=== PATIENT | male | born 1985 | race Caucasian/White ===

== ENCOUNTER 2017-02-28 15:55 | Emergency (ER) | payer SELFPAY ==
[2017-02-28 15:59] VITALS: BP 128/96; BMI 21.9
--- NOTE | 2017-02-28 16:27 | DR.GENAD ---
HPI - PCP Primary Care Physician: NFD - Complaint/Symptoms Chief Complaint Doctors Comments: Patient complains of headache, chills, fever for four days. Chief Complaint:: PT. HAD 13 TOP TEETH PULLED A MONTH AGO IN [place], [place]. PT. STATES HE HAS HAD FEVER, CHILLS, SWEATS,. & INSOMNIA SINCE MONDAY. - Source History Provided: Patient, Significant Other - Mode of Arrival Mode of Arrival: Ambulatory - Timing Onset of Chief Complaint: 02/24/17 PMH - PMH Past Medical History: No Past Medical History: GERD Past Surgical History: Yes Surgical History: Other Past Surgical History Comment: ORAL - Family History History of Family Medical Conditions: Yes Family Medical History: [place] - Social History Does patient currently use any type of tobacco product: Yes Have you used tobacco products in the last 12 months: Yes Type of Tobacco Use: Cigarettes Does any household member use tobacco: Yes Alcohol Use: None Do you use any recreational Drugs:: No Lives With: Significant Other Lives Where: Home - infectious screening In the last 2 months have you had wt loss of >10#?: NO Have you had fever, night sweats or hemotysis?: No Have you traveled outside the country in the last 6 months?: No Isolation: Standard ROS - Review of Systems Constitutional: No Symptoms Reported Eyes: No Symptoms Reported ENTM: No Symptoms Reported Respiratoy: No Symptoms Reported Cardiovascular: No Symptoms Reported Gastrointestinal/Abdominal: No Symptoms Reported Genitourinary: No Symptoms Reported Neurological: No Symptoms Reported Musculoskeletal: No Symptoms Reported Integumentary: No Symptoms Reported PE - Vital Signs Vitals: Temperature 97.0 F Pulse Rate 97 Respiratory Rate 17 Blood Pressure 128/96 O2 Sat by Pulse Oximetry 100 ROR - Labs Reviewed Result Diagrams: 02/28/17 16:47 02/28/17 16:47 Laboratory: WBC 6.3 X10^3/uL (3.6-10.0) 02/28/17 16:47 RBC 5.47 X10^6/uL (4.7-6.0) 02/28/17 16:47 Hgb 16.8 g/dL (13.5-18.0) 02/28/17 16:47 Hct 50.0 % (42.0-54.0) 02/28/17 16:47 MCV 91.4 fL (80.0-100.0) 02/28/17 16:47 MCH 30.7 pg (27.0-34.0) 02/28/17 16:47 MCHC 33.6 g/dL (33.0-35.0) 02/28/17 16:47 RDW 12.8 % (11.6-16.5) 02/28/17 16:47 Plt Count 214 X10^3/uL (150.0-450.0) 02/28/17 16:47 MPV 8.0 fL (7.4-11.0) 02/28/17 16:47 Neut % 54.4 % (42.0-75.0) 02/28/17 16:47 Lymph % 33.8 % (21.0-51.0) 02/28/17 16:47 [place] % 9.9 % (0.0-13.0) 02/28/17 16:47 Eos % 1.2 % (0.9-2.9) 02/28/17 16:47 Baso % 0.7 % (0.2-1.0) 02/28/17 16:47 Neut # 3.4 x10^3/uL (2.2-4.8) 02/28/17 16:47 Lymph # 2.1 X10^3/uL (1.3-2.9) 02/28/17 16:47 [place] # 0.6 x10^3/uL (0.3-0.8) 02/28/17 16:47 Eos # 0.1 x10^3/uL (0.0-0.2) 02/28/17 16:47 Baso # 0.0 X10^3/uL (0.0-0.1) 02/28/17 16:47 Absolute Nucleated RBC 0.0 /100WBC 02/28/17 16:47 Sodium 141 mmol/L (136-145) 02/28/17 16:47 Corrected Sodium TNP 02/28/17 16:47 Potassium 4.5 mmol/L (3.5-5.1) 02/28/17 16:47 Chloride 104 mmol/L (98-107) 02/28/17 16:47 Carbon Dioxide 27.1 mmol/L (21-32) 02/28/17 16:47 BUN 10 mg/dL (7-18) 02/28/17 16:47 Creatinine 1.23 mg/dL (0.70-1.30) 02/28/17 16:47 Est GFR (MDRD) Af Amer > 60 (>60) 02/28/17 16:47 Est GFR (MDRD) Non-Af > 60 (>60) 02/28/17 16:47 Glucose 108 mg/dL (65-99) H 02/28/17 16:47 Calcium 9.4 mg/dL (8.5-10.1) 02/28/17 16:47 - Diagnosis Discharge Problem: R/O Influenza - Discharge Plan Condition: Stable - Follow ups/Referrals Follow ups/Referrals: NFD,None [Primary Care Provider] - 3 days - Instructions Instructions: Upper Respiratory Infection, Adult, [id number]
[2017-02-28 16:58] LABS: BASOPHILS % (AUTO) 0.7 % (0.2-1.0); EOSINOPHILS # (AUTO) 0.1 x10^3/uL (0.0-0.2); EOSINOPHILS % (AUTO) 1.2 % (0.9-2.9); HEMOGLOBIN 16.8 g/dL (13.5-18.0); LYMPHOCYTES # (AUTO) 2.1 X10^3/uL (1.3-2.9); LYMPHOCYTES % (AUTO) 33.8 % (21.0-51.0); MEAN CORPUSCULAR HEMOGLOBIN 30.7 pg (27.0-34.0); MEAN CORPUSCULAR HGB CONC 33.6 g/dL (33.0-35.0); MEAN CORPUSCULAR VOLUME 91.4 fL (80.0-100.0); MONOCYTES # (AUTO) 0.6 x10^3/uL (0.3-0.8); MONOCYTES % (AUTO) 9.9 % (0.0-13.0); NEUTROPHILS # (AUTO) 3.4 x10^3/uL (2.2-4.8); NEUTROPHILS % (AUTO) 54.4 % (42.0-75.0); PLATELET COUNT 214 X10^3/uL (150.0-450.0); RED BLOOD COUNT 5.47 X10^6/uL (4.7-6.0); RED CELL DISTRIBUTION WIDTH 12.8 % (11.6-16.5); WHITE BLOOD COUNT 6.3 X10^3/uL (3.6-10.0)
[2017-02-28 17:09] LABS: BLOOD UREA NITROGEN 10 mg/dL (7-18); CALCIUM 9.4 mg/dL (8.5-10.1); CARBON DIOXIDE 27.1 mmol/L (21-32); CHLORIDE 104 mmol/L (98-107); CREATININE 1.23 mg/dL (0.70-1.30); GLUCOSE 108 mg/dL (65-99); SODIUM 141 mmol/L (136-145); eGFR BLACK RACES > 60 (>60); eGFR NON BLACK RACES > 60 (>60)
== END 2017-02-28 17:51 | disposition home or self-care (01) ==
LOC: ER 16:08
DX: R51 Headache (principal); R68.83 Chills (without fever); R50.9 Fever, unspecified
CPT/HCPCS: 36415; 80048; 85025; 87502; 87503; 99282

== ENCOUNTER 2017-05-23 15:45 | Emergency (ER) | payer SELFPAY ==
[2017-05-23 15:55] VITALS: BP 139/95; BMI 21.9
--- NOTE | 2017-05-23 16:04 | DR.EXTPAIN ---
HPI - Time seen Time seen: 16:00 - PCP Primary Care Physician: NFD - Complaint/Symptoms Chief Complaint:: CUT ARM WITH GRINDING ROCK AT WORK Self Treatment fo Chief Complaint: EMS APPLIED PRESSURE TO SITE AND HAS BLEEDING CONTROLED. MORPHINE 4 MG IV GIVEN PER EMS - Nurses notes reviewed Nurses Notes Review: Yes - Source History Provided: Patient - Mode of arrival Mode of Arrival: EMS - Timing Onset of Chief Complaint: 05/23/17 - Context History of: None - Associated signs and symptoms Associated Signs and Symptoms: Laceration PMH - PMH Past Medical History: Yes Past Medical History: GERD Past Medical History Comment: KIDNEY STONES,CIATIC NERVE PAIN Past Surgical History: No Surgical History: Other - Family History History of Family Medical Conditions: Yes Family Medical History: [place] - Social History Does patient currently use any type of tobacco product: Yes Have you used tobacco products in the last 12 months: Yes Type of Tobacco Use: Cigarettes How many years tobacco product used: 15 Does any household member use tobacco: Yes Alcohol Use: None Do you use any recreational Drugs:: No Lives With: Family Lives Where: Home - infectious screening In the last 2 months have you had wt loss of >10#?: NO Have you had fever, night sweats or hemotysis?: No Have you traveled outside the country in the last 6 months?: No Isolation: Standard ROS - Review of Systems Constitutional: No Symptoms Reported Eyes: No Symptoms Reported ENTM: No Symptoms Reported Respiratoy: No Symptoms Reported Cardiovascular: No Symptoms Reported Gastrointestinal/Abdominal: No Symptoms Reported Genitourinary: No Symptoms Reported Neurological: No Symptoms Reported Musculoskeletal: Arm (right bicep area laceration) Integumentary: No Symptoms Reported Hematologic/Lymphatic: No Symptoms Reported Endocrine: No Symptoms Reported Psychiatric: No Symptoms Reported All Other Systems: Reviewed and Negative PE - Vital Signs Vitals: Temperature 97.8 F Pulse Rate 63 Respiratory Rate 20 Blood Pressure 139/95 O2 Sat by Pulse Oximetry 98 - General Limitations: No Limitations General Appearance: Alert, In No Apparent Distress - Head Head Exam: Normal Inspection - Eyes Eye exam: Normal Appearance, EOMI. negative: Scleral Icterus, Conjunctival Injection - ENT ENT Exam: Normal Exam, Normal Oropharynx - Neck Neck Exam: Normal Inspection, Full ROM, Trachea Midline - Chest Chest Inspection: Normal Inspection - Respiratory Respiratory Exam: negative: Accessory Muscle Use, Respiratory Distress - Extremities Extremities Exam: Tenderness (right bicep skin laceration). negative: Normal Inspection, Full ROM - Upper Extremities Shoulder Exam: Normal Inspection, Full ROM. negative: Tenderness Arm Exam: Tenderness. negative: Normal Inspection, Full ROM Elbow Exam: Normal Inspection, Full ROM, Tenderness Forearm Exam: Normal Inspection, Full ROM, Tenderness. negative: Swelling Neuromotor Exam: Normal Exam Neurosensory Exam: Normal Exam - Neurological Neurological Exam: Alert, Oriented X3, CN II-XII Intact - Psychiatric Psychiatric Exam: Normal Mood - Skin Skin Exam: Normal Color. negative: Intact (2-3cm cut mid bicep area) ROR - XRAY XRAY Interpreted by: Radiologist XRAY Findings: right arm: no opaque foreign ezekiel Procedures - Laceration/Wound Repair Right Anterior Proximal Arm Wound Length (cm): 3 Wound's Depth, Shape: Flap Wound Explored: custom grinder cut Betadine Prep?: Yes Anesthesia: 1% Lidocaine w/ Epi Volume Anesthetic (ccs): 8 Wound Repaired With: sutures Suture Size/Type: 5:0, 4:0, Ethilion Number of Sutures: 7 Layer Closure?: No - Diagnosis Discharge Problem: Laceration - Discharge Plan Condition: Stable Prescriptions: Cephalexin [Keflex] 500 mg PO BID #14 capsule Hydrocodone-Acet 5 mg/325 mg [[place] 5/325 mg Tab] 1 tab PO Q6H PRN #12 tab PRN Reason: Pain - Follow ups/Referrals Follow ups/Referrals: NFD,None [Primary Care Provider] - 3 days - Instructions
[2017-05-23] MEDS ORDERED: ADACEL TDaP IM ONE ×2 (16:08→16:18)
[2017-05-23] MEDS ORDERED: XYLOCAINE 1% and EPINEPHRINE 1:100,000 IM ONE (16:09)
[2017-05-23] MEDS ORDERED: XYLOCAINE 1 % (PLAIN) ONE (16:18)
[2017-05-23] MEDS ORDERED: LIDOCAINE TOP ONE (16:20)
[2017-05-23] MEDS ORDERED: EPINEPHRINE TOP ONE (16:20)
[2017-05-23] MEDS ORDERED: TETRACAINE TOP ONE (16:20)
[2017-05-23] MEDS ORDERED: TETRACAINE ONE (16:22)
[2017-05-23] MEDS ORDERED: LIDOCAINE ONE (16:22)
[2017-05-23] MEDS ORDERED: EPINEPHRINE ONE (16:22)
--- NOTE | 2017-05-23 16:36 | RAD ---
HISTORY: Rule out foreign body. Study: Two views of the humerus. Comparison: None. Findings: No acute cortical disruption or dislocation can be identified. Soft tissue injury is seen overlying the mid left humerus. No obvious radiopaque foreign body. IMPRESSION: No obvious radiopaque foreign body or acute osseous abnormality. Reported By:
[2017-05-23] MEDS ORDERED: NEOSPORIN OINT ONE (17:03)
[2017-05-23] MEDS ORDERED: NEOSPORIN OINT TOP ONE (17:08)
[2017-05-23] MEDS ORDERED: ULTRAM PO ONE (17:09)
[2017-05-23] MEDS ORDERED: AMOXIL CAP 500 MG PO ONE ×2 (17:09→17:25)
[2017-05-23] MEDS ORDERED: ULTRAM ONE (17:26)
== END 2017-05-23 17:45 | disposition home or self-care (01) ==
LOC: ER 15:45
PROC: 0HQBXZZ Repair Right Upper Arm Skin, External Approach (ICD-10-PCS; principal; 2017-05-23)
DX: S41.111A Laceration without foreign body of right upper arm, initial encounter (principal); W31.89XA Contact with other specified machinery, initial encounter; Y93.89 Activity, other specified; Y92.89 Other specified places as the place of occurrence of the external cause
CPT/HCPCS: 12002; 73060; 90471; 96372; 99283; J2001